=== PATIENT | male | born 1945 | race Caucasian/White ===

== ENCOUNTER → 2017-01-06 | Outpatient (CLI) | payer MEDICARE ==
[~2017-01-06] MED LIST: ADVIL200 M1 PO; ASPIRIN81 MG PO; FERROUS SULFAT324 MG PO; FUROSEMIDE40 MG PO; K-DUR 1010 MEQ PO; LORTAB 5/3251 TAB PO; LOSARTAN POTAS100 MG PO; METAMUCIL PACK3.4 GM PO; METFORMIN 500M500 MG PO; METOPROLOL SUCC25 M2 PO; METOPROLOL25 MG PO; OSTEO BI-FLEX1 EAC1 PO; PLAVIX75 MG PO; RANITIDINE 150150 MG PO; TAMSULOSIN HCL0.4 MG PO; TRAMADOL 50MG T50 M1 PO; VITAMIN C500 MG PO; VITAMIN D32000 IU PO; VITAMIN D33000 UNIT PO
--- NOTE | 2017-01-06 09:44 | RADIOLOGY REPORT PS360 ---
[id number] [id number] HISTORY: LEFT SHOULDER PAIN ORDERING PHYSICIAN: Luis Felipe Arias MD PATIENT AGE: 71 years COMPARISON: 04/04/2016 FINDINGS: There is a grade 3 acromioclavicular separation. The acromioclavicular space has increased when compared to previous exam now measuring 22 mm and previously measuring 14 mm. A faint calcific density is present superior to the acromium and may be related to ligamentous calcification or avulsion. There are mild osteoarthritic changes of the glenohumeral joint and there is some bony hypertrophic change along the inferior surface of the acromion. IMPRESSION: 1. Worsening acromioclavicular separation. 2. Mild osteoarthritic change of the glenohumeral joint with subacromial stenosis and hypertrophic change along the inferior aspect of the acromion
== END ==
LOC: RAD 09:08
DX: M25.512 Pain in left shoulder (principal)

== ENCOUNTER → 2017-01-16 | Outpatient (CLI) | payer MEDICARE ==
--- NOTE | 2017-01-17 13:28 | RADIOLOGY REPORT PS360 ---
ULTRASOUND ABDOMEN-LIMITED ULTRASOUND-GUIDED PARACENTESIS ABDOMEN FINDINGS AND PROCEDURE: ULTRASOUND abdomen; A generous fluid is seen throughout the abdomen and with good pocket identified at the right flank. I would note that on prior CT the patient has numerous venous collaterals along the anterior right abdominal wall and thus we performed the paracentesis of the more lateral/posterior aspect of the flank to avoid those venous structures.. .These images also determined the best approach for access to perform aspiration biopsy of this nodule. Scanning by Dr. Patricia ULTRASOUND-GUIDED FNA PARACENTESIS Following sterile preparation as well as local skin, and cautious deeper placement of Xylocaine anesthetic . A small less than 1-2 mm bhakti made in the skin through which the paracentesis needle was passed. Under ultrasound guidance the biopsy needle, was advanced to the fluid at the right abdomen. We initially surprisingly some difficulty due to the more posterior position downward oblique angulation of the needle but eventually obtained a satisfactory return of ascites fluid. A total of 4200 cc was withdrawn.. We attempted to reposition the patient as I suspect there is more fluid above the needle stopped return at this point despite maneuvers and having patient rolled up onto his right side. Thus we felt this was adequate amount r withdrawn this visit. Patient tolerated procedure well . No fluid was sent for laboratory since this was a diagnostic paracentesis. IMPRESSION: ...... Ultrasound localized a safe pocket of fluid at the right flank. Note comments in text Under ultrasound guidance needle was advanced and ascites fluid encountered. A total of 4200 cc was withdrawn at this visit.
== END ==
LOC: RAD 08:56
PROC: 0W9G3ZZ Drainage of Peritoneal Cavity, Percutaneous Approach (ICD-10-PCS; principal; 2017-01-16)
PROC: BW40ZZZ Ultrasonography of Abdomen (ICD-10-PCS; 2017-01-16)
DX: K74.69 Other cirrhosis of liver (principal)

== ENCOUNTER 2017-04-03 07:11 | Day surgery (SDC) | payer MEDICARE ==
[~2017-04-03] VITALS: Ht 177.8 cm; Wt 88.5 kg
--- NOTE | 2017-04-03 09:04 | Operative Note ---
Upper GI Endoscopy Procedure date: 04/03/17 Date of : 43 Procedure:Upper GI Endoscopy Esophagogastroduodenoscopy with variceal band ligation Indications: Mr. Bernardo is a 71-year-old gentleman who is here for follow-up upper endoscopy. The patient does have a history of cirrhosis presumably secondary to GAITAN. The patient has had intractable ascites. He had a sodium adjusted meld score of 9. His creatinine was 0.84. He is having paracentesis every 3 weeks. The patient did have an upper endoscopy in November that showed grade 2-3 esophageal varices that were banded 5. He returns today for repeat banding. The patient has seen the [facility] for consideration of TIPS. Performing Provider: Awa Joseph MD Referring Provider: Bi Adhikari M.D. Sedation: MAC sedation Procedure: Prior to the procedure, a history and physical exam was performed, and patients medications and allergies were reviewed. The risks and benefits of the procedure and the sedation options and risks were discussed with the patient. All questions were answered and informed consent was obtained. The patient was brought to the procedure room. Patient identification and proposed procedure were verified by the physician and the nurse. The patient was placed in a left lateral decubitus position and the scope was passed under direct vision. Throughout the procedure, the patient's blood pressure, pulse, and oxygen saturations were monitored continuously. The endoscope was introduced through the mouth, and advanced to the second part of duodenum. The upper GI endoscopy was accomplished without difficulty. The patient tolerated the procedure well. Findings: The scope was passed directly into the upper esophagus and advanced to the third portion of the duodenum. The post bulbar duodenum and duodenal bulb were normal with normal mucosa and conniventes. There was a moderate-sized duodenal diverticulum in the second portion. The scope was withdrawn through a normal duodenal bulb and pylorus into the stomach. There was mild to moderate portal gastropathy of the fundus. Upon retroflexion there was no fundic varices and no hiatal hernia. The scope was then withdrawn into the esophagus. There was evidence of grade 1-2 esophageal varices without stigmata. 4 bands were utilized to ligate the 4 columns of varices. There was some mild fibrosis from prior banding and possibly early stenosis of esophagus related to banding. Immediate complications: None EBL (ml): 0 Impression: 1. Grade 1-2 esophageal varices without stigmata status post band ligation 4 2. Mild portal gastropathy 3. Duodenal diverticulum Recommendations: The patient does have intractable ascites requiring repeated paracentesis every 3 weeks. He has a normal creatinine and sodium adjusted meld score of 9. I do feel that he is a very good candidate for TIPS and would like to [facility] to readdress this since this has not been high priority since it has been 3 months since initial TIPS request. If there is any feeling towards decompensation, would consider shunt procedure. I would continue to maximize diuretics and low sodium intake without alteration of renal function. at 0903
--- NOTE | 2017-04-03 09:10 | Anesthesia Record ---
Anesthesia Record Part I Total IV fluids: 500 EBL (ml): 0 Urine Output: 0 B/P: 146/82 % SaO2: 98 Pulse: 76 Resps: 16 Temp: 97.7 Patient is: Awake, Stable Stable to PACU at: 0901 (sds) at 0910
--- NOTE | 2017-04-03 09:11 | Anesthesia Record ---
Anesthesia Record Part II Discharge time: 900 Destination: Same day surgery PACU nurse assessment review? Yes Patient is: Awake, Stable Anesthesia complications? No at 0911
[2017-04-03 10:23] VITALS: BP 138/72
== END 2017-04-03 10:10 | disposition home or self-care (01) ==
LOC: SDC 07:11
PROVIDERS: Internal Medicine Gastroenterology
PROC: 06L34CZ Occlusion of Esophageal Vein with Extraluminal Device, Percutaneous Endoscopic Approach (ICD-10-PCS; principal; 2017-04-03 14:30)
DX: I85.00 Esophageal varices without bleeding (principal); K75.81 Nonalcoholic steatohepatitis (NASH); K76.6 Portal hypertension; K31.89 Other diseases of stomach and duodenum; K57.10 Diverticulosis of small intestine without perforation or abscess without bleeding

== ENCOUNTER → 2017-07-18 | Outpatient (CLI) | payer MEDICARE ==
[2017-07-21 12:17] LABS: STOOL OCCULT BLOOD POSITIVE (NEG)
== END ==
LOC: LAB 11:00
PROVIDERS: Nurse Practitioner Acute Care
DX: K74.69 Other cirrhosis of liver (principal)
CPT/HCPCS: G0328

== ENCOUNTER → 2017-07-19 | Outpatient (CLI) | payer MEDICARE ==
[2017-07-21 12:17] LABS: STOOL OCCULT BLOOD POSITIVE (NEG)
== END ==
LOC: LAB 11:00
PROVIDERS: Nurse Practitioner Acute Care
DX: K74.69 Other cirrhosis of liver (principal)
CPT/HCPCS: G0328

== ENCOUNTER → 2017-07-20 | Outpatient (CLI) | payer MEDICARE ==
[2017-07-21 12:17] LABS: STOOL OCCULT BLOOD POSITIVE (NEG)
== END ==
LOC: LAB 11:00
PROVIDERS: Nurse Practitioner Acute Care
DX: K74.69 Other cirrhosis of liver (principal)
CPT/HCPCS: G0328

== ENCOUNTER → 2017-08-22 | Outpatient (CLI) | payer MEDICARE ==
--- NOTE | 2017-08-24 09:12 | RADIOLOGY REPORT PS360 ---
US BIOPSY OR PARACENTESIS HISTORY: Diffuse ascites with and abdomen and labored breathing PARACENTESIS ORDERING PHYSICIAN: AWA ROSSI PATIENT AGE: 71 years COMPARISON: None PROCEDURE: Following obtaining informed consent and after appropriate Time out, under aseptic conditions and local anesthesia with 1% buffered lidocaine using sonographic guidance a 4 Macedonian one-step catheter was inserted into the largest pocket of fluid localized in the right lower quadrant. Approximately 4400 mL of Serosanguineous fluid was drained.. Patient noted immediate relief of symptoms. The patient tolerated the procedure well and left the radiology suite in stable condition. IMPRESSION: Successful sonographic guided paracentesis without complication
== END ==
LOC: RAD 10:42
PROC: 0W9G3ZX Drainage of Peritoneal Cavity, Percutaneous Approach, Diagnostic (ICD-10-PCS; principal; 2017-08-22)
DX: K74.69 Other cirrhosis of liver (principal)

== ENCOUNTER → 2017-09-06 | Outpatient (CLI) | payer MEDICARE ==
--- NOTE | 2017-09-06 12:07 | RADIOLOGY REPORT PS360 ---
US ABD(COMPLETE-MULTI ORGANS COMPARISON: CT scan abdomen pelvis with IV contrast 11/18/2016 HISTORY: Patient with known cirrhosis and ascites TECHNIQUE: Ultrasound abdomen complete FINDINGS: The pancreas is somewhat hyperechoic probably due to fatty infiltration, portion of tail is obscured by bowel gas. The right lobe of liver somewhat struck in width mild lobulation of the contour with somewhat coarsened diffuse echogenicity all findings consistent with cirrhosis. The portal vein is mildly dilated. There is large amount of abdominal ascites surrounding the right lobe of the liver and extending to the pelvis on both sides. There is borderline splenomegaly. The right kidney measures 11.5 x 5.1 x 6.8 cm. There is a stable cortical cyst measuring 2.3 x 2.3 x 1.9 cm. IMPRESSION: Findings again consistent with advanced cirrhosis with some obstructive right lobe of liver with lobulation of the contour, probable portal hypertension and a large amount of abdominal ascites.
== END ==
LOC: RAD 08:29
DX: K74.60 Unspecified cirrhosis of liver (principal); R18.8 Other ascites; I85.00 Esophageal varices without bleeding; Z87.19 Personal history of other diseases of the digestive system

== ENCOUNTER 2017-09-11 11:07 | Day surgery (SDC) | payer MEDICARE ==
--- NOTE | 2017-09-11 12:35 | Operative Note ---
Upper GI Endoscopy Procedure date: 09/11/17 Date of : 43 Procedure:Upper GI Endoscopy Esophagogastroduodenoscopy with TTS balloon dilation Indications: Mr. Bernardo is a 71-year-old gentleman with a history of Busch and cirrhosis. The patient previously had intractable ascites. He has a meld score of 9. The patient has been seen at the [facility] hepatology division for consideration of TIPS (transjugular intrahepatic portosystemic shunt). This has not yet been performed. The patient does have positive fecal Hemoccult. He did have EGD with variceal banding 5 in November 2016 and banding 4 in March 2017. He has had no further melena or bleeding. He does have moderate dysphagia. Performing Provider: Awa Joseph MD Referring Provider: Bi Adhikari M.D. Sedation: MAC sedation Procedure: Prior to the procedure, a history and physical exam was performed, and patients medications and allergies were reviewed. The risks and benefits of the procedure and the sedation options and risks were discussed with the patient. All questions were answered and informed consent was obtained. The patient was brought to the procedure room. Patient identification and proposed procedure were verified by the physician and the nurse. The patient was placed in a left lateral decubitus position and the scope was passed under direct vision. Throughout the procedure, the patient's blood pressure, pulse, and oxygen saturations were monitored continuously. The endoscope was introduced through the mouth, and advanced to the second part of duodenum. The upper GI endoscopy was accomplished without difficulty. The patient tolerated the procedure well. Findings: The scope was passed directly into the upper esophagus and advanced to the third portion of the duodenum. The post bulbar duodenum and duodenal bulb were normal with normal mucosa and conniventes. There was a single angiodysplasia in the second/third portion of duodenum with minor heme. The scope was withdrawn through a normal duodenal bulb and pylorus into the stomach. There was moderate bile reflux with mild portal gastropathy. There was no evidence of GAVE or gastric varices. There was moderate bile reflux and some linear reactive gastritis. The remainder of the antrum, body and fundus of the stomach were grossly normal. Upon retroflexion there was no hiatal hernia. The scope was then withdrawn into the esophagus. There were no significant varices identified presently but there was some fibrosis from prior banding causing some minor stricturing. There were also tertiary contractions and mild esophageal dysmotility. The esophagus was gently dilated up to 20 mm with a TTS hydrostatic balloon. Immediate complications: None EBL (ml): 0 Impression: 1. Post variceal banding esophageal fibrosis with minor esophageal stricturing and some mild esophageal dysmotility (no varices identified presently) status post dilation to 20 mm with a TTS hydrostatic balloon 2. Mild portal gastropathy 3. Mild reactive gastritis with bile reflux 4. Duodenal angiodysplasia/AVM with minor heme Recommendations: I do feel that he may have some portal hypertension related gastrointestinal blood loss and have bleeding from angiodysplasia/AVMs. If the patient were to develop melena or more significant gastrointestinal blood loss, would consider video capsule evaluation since the varices are no longer present and he is not bleeding from portal gastropathy or GAVE. at 1235
[2017-09-11 13:30] VITALS: BP 115/63
== END 2017-09-11 13:25 | disposition home or self-care (01) ==
LOC: SDC 11:07
PROVIDERS: Internal Medicine Gastroenterology
PROC: 0D758ZZ Dilation of Esophagus, Via Natural or Artificial Opening Endoscopic (ICD-10-PCS; principal; 2017-09-11 12:00)
DX: K31.811 Angiodysplasia of stomach and duodenum with bleeding (principal); K22.2 Esophageal obstruction; K74.60 Unspecified cirrhosis of liver; K75.81 Nonalcoholic steatohepatitis (NASH); K21.9 Gastro-esophageal reflux disease without esophagitis; K31.9 Disease of stomach and duodenum, unspecified; K29.60 Other gastritis without bleeding; K22.4 Dyskinesia of esophagus; K22.8 Other specified diseases of esophagus; K76.6 Portal hypertension; K31.89 Other diseases of stomach and duodenum
CPT/HCPCS: C1726

== ENCOUNTER → 2017-09-20 | Outpatient (CLI) | payer MEDICARE ==
--- NOTE | 2017-09-20 16:58 | RADIOLOGY REPORT PS360 ---
US BIOPSY OR PARACENTESIS HISTORY: Ascites, cirrhosis, abdominal distention with discomfort OSIS, CIRRHOSIS ORDERING PHYSICIAN: Bi Adhikari MD PATIENT AGE: 72 years COMPARISON: None PROCEDURE: Following obtaining informed consent and after appropriate Time out, under aseptic conditions and local anesthesia with 1% buffered lidocaine using sonographic guidance a 4 Norwegian one-step catheter was inserted into the largest pocket of fluid localized in the right lower quadrant. Approximately 4500 mL's of Serosanguineous fluid was drained. The patient tolerated the procedure well and left the radiology suite in stable condition. IMPRESSION: Successful sonographic guided paracentesis without complication
== END ==
LOC: RAD 08:07
PROC: 0W9G3ZX Drainage of Peritoneal Cavity, Percutaneous Approach, Diagnostic (ICD-10-PCS; principal; 2017-09-20)
DX: K74.69 Other cirrhosis of liver (principal)

== ENCOUNTER → 2017-10-30 | Outpatient (CLI) | payer MEDICARE ==
--- NOTE | 2017-10-30 15:57 | RADIOLOGY REPORT PS360 ---
US BIOPSY OR PARACENTESIS Ordering Physician: JUSTIN CANDELARIO Patient Age: 72 years: Male HISTORY: Recurring ASCITES . cirrhosis TECHNIQUE: Ultrasound abdomen Limited with Ultrasound guided FINDINGS AND PROCEDURE: LIMITED ULTRASOUND ABDOMEN-attention right abdomen; The prominent ascites is again visualized here at the protuberant right abdomen along the right flank. A generous pocket of fluid location for paracentesis at the RLQ was identified right. .These images also determined the best approach for access to perform aspiration biopsy of this nodule. Scanning by Dr. Patricia ULTRASOUND-GUIDED PARACENTESIS Following sterile preparation as well as local skin, and local anesthesia with Xylocaine anesthetic the paracentesis needle was directed to the skin and to the fluid here at the protuberant right lower quadrant.. . . Clear yellow ascites was encountered. A total of 5700 cc was withdrawn. IMPRESSION: 1. Ultrasound-guided paracentesis performed without difficulty. A total of 5700 cc of clear ascites fluid was withdrawn from abdomen
== END ==
LOC: RAD 08:12
PROC: 0W9G3ZX Drainage of Peritoneal Cavity, Percutaneous Approach, Diagnostic (ICD-10-PCS; principal; 2017-10-30)
DX: R18.8 Other ascites (principal); K74.69 Other cirrhosis of liver